=== PATIENT | male | born 1955 | race Caucasian/White ===

== ENCOUNTER 2016-12-26 08:51 | Day surgery (SDC) | payer BC ==
[~2016-12-26 08:51] MED LIST: LIDOCAINE HCL 1% MPF SOL ONE; PROPOFOL 500 MG/50 ML EMU IV ONE
[2016-12-26 11:02] VITALS: BP 130/79; PULSE 47; RESP 20; TEMP 97; O2SAT 98
== END 2016-12-26 11:10 | disposition home or self-care (01) ==
LOC: SURG 08:51
PROVIDERS: ATTEND Surgery
DX: Z12.11 Encounter for screening for malignant neoplasm of colon (principal); Z86.010 Personal history of colon polyps; Z80.0 Family history of malignant neoplasm of digestive organs; K57.30 Diverticulosis of large intestine without perforation or abscess without bleeding; D12.5 Benign neoplasm of sigmoid colon; D12.3 Benign neoplasm of transverse colon; K62.1 Rectal polyp
CPT/HCPCS: 45385; 99001; J2001; J2704

== ENCOUNTER 2018-11-20 13:45 | Outpatient (CLI) | payer BC ==
[2016-12-26 11:02] VITALS: O2SAT 98
== END 2018-11-20 13:46 | disposition home or self-care (01) ==
LOC: CONVCARE 13:45
PROVIDERS: ATTEND Orthopaedic Surgery
DX: M25.562 Pain in left knee (principal)
CPT/HCPCS: 73560

== ENCOUNTER 2019-01-01 05:35 | Inpatient (IN) | payer BC ==
[2019-01-01] MEDS ORDERED: SCOPOLAMINE 1.5MG PATCH TD SCH (06:00)
[2019-01-01] MEDS ORDERED: LACTATED RINGERS 1,000 ML IV ONE (06:00)
[2019-01-01] MEDS ORDERED: CELECOXIB 100 MG CAP PO SCH (06:00)
[2019-01-01] MEDS ORDERED: SCOPOLAMINE 1.5MG PATCH TD ONE (06:04)
[2019-01-01] MEDS ORDERED: TRANEXAMIC ACID 100 MG/ML SOL ONE (06:46)
[2019-01-01] MEDS ORDERED: SODIUM CHLORIDE 20 ML 0 ML ONE (06:46)
[2019-01-01] MEDS ORDERED: LACTATED RINGERS 1,000 ML IV SCH (07:00)
[2019-01-01] MEDS ORDERED: MORPHINE SULFATE 0.5 MG/ML SOL ONE (07:28)
[2019-01-01] MEDS ORDERED: MIDAZOLAM 2 MG/2 ML SOL ONE (07:28)
[2019-01-01] MEDS ORDERED: DEXAMETHASONE 20 MG/5 ML (4 MG/ML SOL) ONE (07:28)
[2019-01-01] MEDS ORDERED: PROPOFOL 500 MG/50 ML EMU IV ONE ×2 (07:28→08:37)
[2019-01-01] MEDS ORDERED: ONDANSETRON HCL 4 MG/2 ML SOL ONE (07:28)
[2019-01-01] MEDS ORDERED: PHENYLEPHRINE HYDROCHLORIDE 10 MG/ML SOL ONE (07:34)
[2019-01-01] MEDS ORDERED: CEFAZOLIN SODIUM 1 GM PDS IV ONE (08:15)
[2019-01-01] MEDS ORDERED: CEFAZOLIN SODIUM 1 GM PDS ONE ×4 (08:37→23:48)
[2019-01-01] MEDS: BUPIVACAINE LIPOSOME 20 ML SUS ONE ×2 (08:57→09:22)
[2019-01-01] MEDS: BUPIVACAINE HCL 0.25% MPF 30 ML SOL INFIL ONE ×2 (08:57→09:22)
[2019-01-01] MEDS ORDERED: SODIUM CHLORIDE 0.9% FLUSH 10 ML SOL IV ONE ×2 (08:57→09:22)
[2019-01-01] MEDS ORDERED: SODIUM CHLORIDE 20 ML 20 ML ONE (09:12)
[2019-01-01] MEDS ORDERED: PROPOFOL 10 MG/ML 200 MG/20 ML EMU IV ONE (09:30)
[2019-01-01] MEDS ORDERED: MORPHINE SULFATE 10 MG/ML SOL IV PRN (09:53)
[2019-01-01] MEDS ORDERED: ONDANSETRON 4 MG ODT BU PRN (09:53)
[2019-01-01] MEDS ORDERED: ACETAMINOPHEN 325 MG PO PRN (09:53)
[2019-01-01] MEDS ORDERED: SODIUM CHLORIDE 0.9% 500 ML 500 ML IV PRN (09:53)
[2019-01-01] MEDS ORDERED: DIAZEPAM 5 MG TAB PO PRN (09:53)
[2019-01-01] MEDS: DEXTROSE/SALINE 0.45/KCL 20MEQ 1,000 ML/1,000 ML SOL IV SCH ×2 (11:37→22:06)
[2019-01-01] MEDS: SODIUM CHLORIDE 0.9% FLUSH 10 ML SOL IV SCH ×2 (11:38→18:23)
[2019-01-01] MEDS ORDERED: SODIUM CHLORIDE 0.9% 100 ML 100 ML IV ONE ×3 (15:59→23:48)
[2019-01-01] MEDS: CEFAZOLIN SODIUM 1 GM PDS 2 GM in SODIUM CHLORIDE 0.9% 100 ML 100 ML IV SCH (16:15)
[2019-01-01] MEDS: APAP/HYDROCODONE 1 EACH TABLET PO PRN (21:44)
[2019-01-01] MEDS: SENNOSIDES A AND B 8.6 MG TAB PO SCH (21:44)
[2019-01-02] MEDS: CEFAZOLIN SODIUM 1 GM PDS 2 GM in SODIUM CHLORIDE 0.9% 100 ML 100 ML IV SCH (00:09)
[2019-01-02] MEDS: SODIUM CHLORIDE 0.9% FLUSH 10 ML SOL IV SCH ×3 (00:45→15:55)
[2019-01-02] MEDS: APAP/HYDROCODONE 1 EACH TABLET PO PRN ×4 (06:24→20:36)
[2019-01-02 07:27] LABS: MEAN CORPUSCULAR HEMOGLOBIN 29.5 pg (27.0-32.0)
[2019-01-02] MEDS: FERROUS GLUCONATE 324 MG TABLET PO SCH (09:30)
[2019-01-02] MEDS: RIVAROXABAN 10 MG TAB PO SCH (09:30)
[2019-01-02] MEDS: SENNOSIDES A AND B 8.6 MG TAB PO SCH (20:11)
[2019-01-03] MEDS: SODIUM CHLORIDE 0.9% FLUSH 10 ML SOL IV SCH ×3 (02:51→10:36)
[2019-01-03] MEDS: APAP/HYDROCODONE 1 EACH TABLET PO PRN ×2 (06:43→13:17)
[2019-01-03 07:34] LABS: HEMOGLOBIN 12.4 gm/dl (13.5-17.7); MEAN CORPUSCULAR HEMOGLOBIN 29.9 pg (27.0-32.0); MEAN CORPUSCULAR HGB CONC 33.6 gm/dl (32.0-36.0)
[2019-01-03 08:51] VITALS: PULSE 89; TEMP 98.4; O2SAT 96
[2019-01-03] MEDS: FERROUS GLUCONATE 324 MG TABLET PO SCH (08:52)
[2019-01-03] MEDS: RIVAROXABAN 10 MG TAB PO SCH (08:52)
[2019-01-03 16:25] VITALS: BP 126/76; RESP 18
== END 2019-01-03 18:30 | disposition home or self-care (01) | DRG 302 ==
LOC: ACUTE CARE 05:35
PROVIDERS: ADMIT Orthopaedic Surgery; ATTEND Orthopaedic Surgery
PROC: F01L5YZ Range of Motion and Joint Integrity Assessment of Musculoskeletal System - Lower Back / Lower Extremity using Other Equipment (ICD-10-PCS; 2019-01-01)
PROC: F01L0FZ Muscle Performance Assessment of Musculoskeletal System - Lower Back / Lower Extremity using Assistive, Adaptive, Supportive or Protective Equipment (ICD-10-PCS; 2019-01-01)
PROC: F01ZBFZ Bed Mobility Assessment using Assistive, Adaptive, Supportive or Protective Equipment (ICD-10-PCS; 2019-01-01)
PROC: 0SRD0J9 Replacement of Left Knee Joint with Synthetic Substitute, Cemented, Open Approach (ICD-10-PCS; principal; 2019-01-01 08:00)
PROC: F02Z0FZ Bathing/Showering Assessment using Assistive, Adaptive, Supportive or Protective Equipment (ICD-10-PCS; 2019-01-02)
PROC: F02Z3ZZ Grooming/Personal Hygiene Assessment (ICD-10-PCS; 2019-01-02)
DX: M17.10 Unilateral primary osteoarthritis, unspecified knee (principal); Z87.891 Personal history of nicotine dependence; Z96.652 Presence of left artificial knee joint
CPT/HCPCS: 36415; 73560; 85027; 85049; 94150; 99070; J0690; J1100; J2250; J2274; J2405; A6232; A9270-GY; J2370; J2704; J3490; Q3014

== ENCOUNTER 2019-02-12 09:55 | Outpatient (CLI) | payer BC ==
[2019-01-03 08:51] VITALS: O2SAT 96
== END 2019-02-12 09:56 | disposition home or self-care (01) ==
LOC: CONVCARE 09:55
PROVIDERS: ATTEND Orthopaedic Surgery
DX: Z48.89 Encounter for other specified surgical aftercare (principal)
CPT/HCPCS: 73560